=== PATIENT | female | born 1985 | race Caucasian/White ===

== ENCOUNTER 2017-02-16 17:53 | Observation (INO) ==
[2017-02-16] MEDS ORDERED: Terbutaline 1 MG/ML VIAL SQ ONE (18:26)
[2017-02-16 18:36] LABS: Bilirubin,Urine Negative (Negative); Blood,Urine Negative (Negative); Clarity,Urine Clear (Clear); Color,Urine Yellow (Yellow); Glucose,Urine (UA) Normal (Normal); Ketones,Urine 40 mg/dL (Negative); Leukocyte Esterase,Urine Negative (Negative); Nitrite,Urine Negative (Negative); PH,Urine 6.5 pH Units (5.0-8.0); Protein,Urine Negative (Neg-Trace); Specific Gravity,Urine 1.016 (1.010-1.025); Urobilinogen,Urine Normal (Normal)
[2017-02-16 18:45] LABS: Amphetamine Screen,Urine Negative ng/mL (Cutoff=1000); Barbiturate Screen,Urine Negative ng/mL (Cutoff=200); Benzodiazepines Screen,Urine Negative ng/mL (Cutoff=200); Cannabinoid Screen,Urine Negative ng/mL (Cutoff = 50); Cocaine Screen,Urine Negative ng/mL (Cutoff= 300); Opiate Screen,Urine Negative ng/mL (Cutoff=300); Phencyclidine Screen,Urine Negative ng/mL (Cutoff=25)
--- NOTE | 2017-02-16 19:13 | OB/GYN Progress Note ---
Date of Encounter: 02/16/17 Time of Encounter: 19:00 - Assessment and Plan (1) and not yet delivered in third trimester Current Visit: Yes Status: Acute (2) 32 weeks gestation of Current Visit: Yes Status: Acute (3) uterine contractions in third trimester, antepartum Current Visit: Yes Status: Acute Subcutaneous terbutaline given 1 contractions have stopped will discharge home have a follow-up in the office this week for steroids. Return if contractions get more uncomfortable. (4) Previous section complicating Current Visit: Yes Status: Acute (5) History of delivery, currently in third trimester Current Visit: Yes Status: Acute Subjective - Subjective Interval history: Patient is a 31-year-old 9 para 2335 at 32-5/7 weeks who presented to labor and delivery complaining of contractions since 3 AM. Patient has a history of 3 deliveries one at 28 weeks, one at 35 weeks, one at 36 weeks. Her last 2 have been sections. Patient is currently on progestin shots but she has not received any steroid shots at. She is scheduled to come in this week for visit because she lives so far from the hospital recommended she talk to her OB on Thursday and get a steroid shot then she can follow up the next day at the [facility] office for her second shot. On admission patient was having some irritability noted to contractions seen she is denying any dysuria urgency frequency no vaginal discharge good movement. Patient states that she has been keeping herself well-hydrated. Patient was given 1 dose of terbutaline subcutaneous and contractions have spaced out Antepartum ROS: contractions Objective - Vital Signs Vital Signs: Intake and Output 02/16/17 02/16/17 02/16/17 07:59 15:59 23:59 Other: Weight 90.7 kg Patient Weight 02/16/17 23:59 Weight 90.7 kg - Exam FHR: category 1 FHR comments: heart tones 140s reactive irritability noted stopped after terbutaline administered Auscultation: bilateral: normal Abdomen: Present: soft, gravid Cervical dilation: 0 Cervix effacement: 50 station: -3 - Labs Labs: Abnormal lab results Urine Ketones 40 mg/dL (Negative) H 02/16/17 18:20
== END 2017-02-16 19:40 | disposition home or self-care (01) ==
LOC: 1NENULAB
PROVIDERS: ADMIT Obstetrics & Gynecology; ATTEND Obstetrics & Gynecology

== ENCOUNTER 2017-02-23 18:04 | Observation (INO) ==
--- NOTE | 2017-02-23 19:24 | OB/GYN Progress Note ---
Date of Encounter: 02/23/17 Time of Encounter: 19:20 - Assessment and Plan (1) 33 weeks gestation of Current Visit: Yes Status: Acute (2) Vaginal bleeding Current Visit: Yes Status: Acute Labor precautions given (3) History of delivery, currently in third trimester Current Visit: No Status: Acute (4) and not yet delivered in third trimester Current Visit: No Status: Acute (5) uterine contractions in third trimester, antepartum Current Visit: No Status: Acute (6) Previous section complicating Current Visit: No Status: Acute (7) Rivka albicans infection Current Visit: Yes Status: Acute Will treat with terconazole Subjective - Subjective Interval history: Patient is a 31-year-old 9 para 5 at 33-5/7 weeks who presented to labor and delivery for evaluation of vaginal bleeding. Patient has a history of 3 deliveries 2 by section. Patient was seen last week with complaint of contractions nothing was seen and she was discharged home and did receive her steroid shots in the office last week she states today she was having a mucousy discharge that was blood-tinged. She did call the office advised to come to the hospital with her history. Patient states that she has been doing a lot of moving cleaning the house moving furniture getting ready for the baby. Patient is not complaining of any discharge with states she leaks urine whenever she coughs or sneezes. Patient states the baby is still moving states is having some irritability and cramping but nothing that she can time. Antepartum ROS: vaginal bleeding, contractions Objective - Vital Signs Vital Signs: Intake and Output 02/23/17 02/23/17 02/23/17 07:59 15:59 23:59 Other: Weight 90 kg Patient Weight 02/23/17 23:59 Weight 90 kg - Exam FHR: category 1 FHR comments: heart tones 140s reactive no contraction seen Abdomen: Present: soft, gravid Uterus: Present: firm Cervical dilation: Closed Cervix effacement: thick station: ballotable Comments: Sterile speculum exam performed and the patient nitrazine ferning was negative there was some old blood within the vaginal vault wet mount was performed did show some candidiasis.
== END 2017-02-23 19:30 | disposition home or self-care (01) ==
LOC: 1NENULAB
PROVIDERS: ADMIT Obstetrics & Gynecology; ATTEND Obstetrics & Gynecology

== ENCOUNTER 2017-03-01 00:31 | Observation (INO) ==
[2017-03-01 00:56] LABS: Bilirubin,Urine Negative (Negative); Blood,Urine Moderate (Negative); Clarity,Urine Clear (Clear); Color,Urine Yellow (Yellow); Glucose,Urine (UA) Normal (Normal); Ketones,Urine Negative (Negative); Leukocyte Esterase,Urine Negative (Negative); Nitrite,Urine Negative (Negative); PH,Urine 6.5 pH Units (5.0-8.0); Protein,Urine Negative (Neg-Trace); Specific Gravity,Urine 1.015 (1.010-1.025); Urobilinogen,Urine Normal (Normal)
[2017-03-01 00:58] LABS: Bacteria,Urine None Seen per hpf (None-Few); Hyaline Casts,Urine None Seen per lpf (None-Few); Squamous Epithelial Cell,Urine Many per lpf (None-Few); WBC,Urine 0-3 per hpf (0-3)
[2017-03-01 01:01] LABS: Amphetamine Screen,Urine Negative ng/mL (Cutoff=1000); Barbiturate Screen,Urine Negative ng/mL (Cutoff=200); Benzodiazepines Screen,Urine Negative ng/mL (Cutoff=200); Cannabinoid Screen,Urine Negative ng/mL (Cutoff = 50); Cocaine Screen,Urine Negative ng/mL (Cutoff= 300); Opiate Screen,Urine Negative ng/mL (Cutoff=300); Phencyclidine Screen,Urine Negative ng/mL (Cutoff=25)
--- NOTE | 2017-03-01 01:22 | OB/GYN Progress Note ---
Date of Encounter: 03/01/17 Time of Encounter: : - Assessment and Plan (1) 34 weeks gestation of Current Visit: Yes Status: Acute (2) History of delivery, currently in third trimester Current Visit: No Status: Acute (3) Previous section complicating Current Visit: No Status: Acute (4) Vaginal bleeding Current Visit: No Status: Acute Cervical exam unchanged on serial exams. 50/-3. No contractions seen during monitoring Pt states back discomfort has decreased (- CVA tenderness, - UA) Discharged home with when to return precautions and when to call provider. (5) NST (non-stress test) reactive Current Visit: Yes Status: Acute Baseline 120 Subjective - Subjective Interval history: Catrina presents to labor and delivery with complaints of pink discharge and increase in back pain since 1945 this evening. Pt states she noticed the discharge when wiping and states the back pain feels like back labor with her last . Reports good movement, denies leaking of fluid. History of delivery, steroids given. Antepartum ROS: vaginal bleeding, movement normal, contractions, no loss of fluid Objective - Exam FHR: auscultation normal FHR comments: Baseline 120 Abdomen: Present: normal appearance, soft, gravid Cervical dilation: 50/-2 - Labs Labs: Abnormal lab results Urine Blood Moderate (Negative) H 03/01/17 00:35 Urine Microscopic RBC 3-5 per hpf (0-3) H 03/01/17 00:35 Ur Squamous Epith Cells Many per lpf (None-Few) H 03/01/17 00:35
== END 2017-03-01 01:56 | disposition home or self-care (01) ==
LOC: 1NENULAB
PROVIDERS: ADMIT Advanced Practice Midwife; ATTEND Advanced Practice Midwife

== ENCOUNTER 2017-03-07 15:45 | Observation (INO) ==
--- NOTE | 2017-03-07 16:14 | OB/GYN Progress Note ---
Date of Encounter: 03/07/17 Time of Encounter: 16:12 - Assessment and Plan (1) History of delivery, currently in third trimester Current Visit: Yes Status: Acute (2) NST (non-stress test) reactive Current Visit: Yes Status: Acute baseline 125 (3) uterine contractions in third trimester, antepartum Current Visit: Yes Status: Acute Cervical exam remains unchanged from last admission. Will discharge to home with labor and when to return to triage precautions. Dr. Davies made aware of POC (4) Previous section complicating Current Visit: Yes Status: Acute (5) Vaginal bleeding Current Visit: Yes Status: Acute Pt states had dime size spot of bloody show on pad this afternoon. Subjective - Subjective Interval history: 35 weeks gestation presents to triage for labor evaluation. Pt states since noon she has been anna every 12 minutes and has had some bloody show. Reports good movement, denies leaking of fluid. Pt is a repeat C/S. Antepartum ROS: vaginal bleeding, movement normal, contractions, no loss of fluid Objective - Exam FHR: auscultation normal FHR comments: Baseline 125 Abdomen: Present: normal appearance, soft, gravid Uterus: Present: normal Cervical dilation: /50/-2
[2017-03-07 16:51] LABS: Amphetamine Screen,Urine Negative ng/mL (Cutoff=1000); Barbiturate Screen,Urine Negative ng/mL (Cutoff=200); Benzodiazepines Screen,Urine Negative ng/mL (Cutoff=200); Cannabinoid Screen,Urine Negative ng/mL (Cutoff = 50); Cocaine Screen,Urine Negative ng/mL (Cutoff= 300); Opiate Screen,Urine Negative ng/mL (Cutoff=300); Phencyclidine Screen,Urine Negative ng/mL (Cutoff=25)
== END 2017-03-07 16:30 | disposition home or self-care (01) ==
LOC: 1NENULAB
PROVIDERS: ADMIT Advanced Practice Midwife; ATTEND Advanced Practice Midwife

== ENCOUNTER 2017-03-09 18:37 | Observation (INO) ==
[2017-03-09] MEDS ORDERED: Ringers Solution, Lactated 1,000 ML IVC ONE (19:21)
[2017-03-09] MEDS ORDERED: Ringers Solution, Lactated 1,000 ML ONE (19:30)
--- NOTE | 2017-03-09 19:32 | OB/GYN Progress Note ---
Date of Encounter: 03/09/17 Time of Encounter: 19:30 - Assessment and Plan (1) 35 weeks gestation of Current Visit: Yes Status: Acute (2) History of delivery, currently in third trimester Current Visit: No Status: Acute (3) NST (non-stress test) reactive Current Visit: No Status: Acute Baseline 120 (4) uterine contractions in third trimester, antepartum Current Visit: No Status: Acute pt with occasional contractions on monitor, Pt states has not eaten today and only had 2 bottles of water today, fluid bolus given, No change on serial cervical exams. Discharged home with when to return to triage precautions. Pt verbalizes understanding. (5) Previous section complicating Current Visit: No Status: Acute (6) Vaginal bleeding Current Visit: No Status: Acute Subjective - Subjective Interval history: 35+5 weeks gestation presents to triage with complaints of contractions and bleeding areas patient states since earlier this afternoon she has been spotting with small eraser head size clots. She states contractions have continued but got stronger this evening about 5 PM. Patient states feels needle movement (but has decreased from earlier), but still most frequently throughout the day just director stars. Denies leaking of fluid. Antepartum ROS: vaginal bleeding, contractions, no loss of fluid, no movement normal Objective - Vital Signs Vital Signs: Intake and Output 03/09/17 03/09/17 03/09/17 07:59 15:59 23:59 Other: Weight 89.947 kg Patient Weight 03/09/17 23:59 Weight 89.947 kg - Exam FHR: auscultation normal FHR comments: baseline 120 Abdomen: Present: normal appearance, soft, gravid Uterus: Present: normal Cervical dilation: 2/50/-3
[2017-03-09 20:51] LABS: Amphetamine Screen,Urine Negative ng/mL (Cutoff=1000); Barbiturate Screen,Urine Negative ng/mL (Cutoff=200); Benzodiazepines Screen,Urine Negative ng/mL (Cutoff=200); Cannabinoid Screen,Urine Negative ng/mL (Cutoff = 50); Cocaine Screen,Urine Negative ng/mL (Cutoff= 300); Opiate Screen,Urine Negative ng/mL (Cutoff=300); Phencyclidine Screen,Urine Negative ng/mL (Cutoff=25)
== END 2017-03-09 20:55 | disposition home or self-care (01) ==
LOC: 1NENULAB
PROVIDERS: ADMIT Advanced Practice Midwife; ATTEND Advanced Practice Midwife

== ENCOUNTER 2017-03-10 18:40 | Inpatient (IN) ==
--- NOTE | 2017-03-10 18:36 | OB/GYN History & Physical ---
Date of Encounter: 03/10/17 Time of Encounter: 18:30 Assessment and Plan (1) Spontaneous rupture of membranes Current visit: Yes Status: Acute (2) Previous section complicating Current visit: Yes Status: Acute Patient will be kept nothing by mouth for a repeat low transverse section with bilateral partial salpingectomy (3) Family planning advice Current visit: Yes Status: Acute (4) 35 weeks gestation of Current visit: No Status: Acute (5) and not yet delivered in third trimester Current visit: No Status: Acute History of Present Illness HPI: Ms. uCtler is a 31 year old female 9 para 2335 at 35-6/7 weeks who presented to labor delivery complaining of leaking of fluid since about 2330 this afternoon. Patient states she had a large gush of fluid and actually brought and 3 pads soaked. Nitrazine was positive on the perineum speculum exam performed the patient also confirmed nitrazine and ferning positive patient states she last ate at approximately 1400 she is not anna at this time did advise should have to wait 8 hours. Patient is wanting a tubal ligation she states that she did sign tubal papers the risks and benefits of a tubal ligation was expanded to patient with a failure rate of 3-5 per thousand with increased risk of a ectopic if was to occur. Patient does have a history of 2 previous sections. Patient is Rh+ rubella positive GBS unknown at this time. Past Med Surg Social Fam HX - Past Medical History Source: patient, old records reviewed Medical history: asthma Psychiatric history: bipolar, depression - Past Surgical History Surgical History: (x 2), cholecystectomy - Social History Smoking Status: Current every day smoker Smokeless Tobacco Status: No Alcohol use: none Drug use: none Occupational status: unemployed Current living situation: Home - Independent Activity Level: Independent ambulation Recent Out of Country Travel Within the Last 8 Weeks: No Exposure or Possible Exposure to Illness During Travel: No - Family History Mother Adopted: No Living Status: Still Living Hx Family Cardiac Disorders: No Hx Family Respiratory Disorders: No Hx Family Cancer: No Hx Family GI Disorders: No Hx Family Endocrine Disorder: No Hx Family Neuromuscular Disorders: No Hx Family Neurologic Disorders: No Hx Family HEENT Disorders: No Hx Family Autoimmune Disorders: No Hx Family Reproductive Disorders: Yes (ovarian cysts) Obstetrical History - Pregnancies : 9 Para: 5 Term: 2 : 3 Ab's: 3 Livin Medications and Allergies Vit Calc,Iron,Folic [ Vitamins] 1 each PO DAILY #60 tablet 06/02 [Rx] 3 Allergy/AdvReac Type Severity Reaction Status Date / Time Amoxicillin Allergy Difficulty Verified 02/23/17 18:46 Breathing latex Allergy Rash Verified 02/23/17 18:46 Pineapple Allergy Anaphylaxis Verified 02/23/17 18:46 Review of System OB All systems PM: reviewed and no additional remarkable complaints except as stated - Genitourinary Genitourinary: other (Patient scheduled spontaneous rupture membranes) Exam - Constitutional Constitutional: well developed, well nourished, no acute distress, average body habitus - HEENT HEENT: EOMI, PERRL, Mucus Membranes Moist - Neck Neck exam: full ROM - Lungs Respiratory exam: CTAB - Cardiovascular Cardiovascular exam: RRR - Abdomen Abdomen: Present: gravid - Vagina Vagina: Present: discharge (Sterile speculum exam revealed nitrazine positive ferning positive) - Cervix Dilation: 1 Effacement: 50 Station: -3 (ballotable) - Comments Comments: heart tones 140s reactive no contraction seen at this time Results All other labs normal.
[~2017-03-10 18:40] MED LIST: Famotidine 20 MG/2 ML VIAL IVP ONE; Metoclopramide 10 MG/2 ML VIAL IVP ONE; Oxytocin 20 units/ LR 1000 mL 20 UNIT/1,000 ML BAG IVC ONE
[2017-03-10] MEDS ORDERED: Ringers Solution, Lactated 1,000 ML IVC SCH ×2 (18:45→23:09)
[2017-03-10 19:00] LABS: Basophils % 0.2 %; Eosinophils # 0.2 K/mcL (0.0-0.6); Eosinophils % 1.8 %; Hematocrit 33.7 % (35.3-44.9); Hemoglobin 10.9 g/dL (11.5-15.4); Immature Granulocytes % 0.7 % (0-4); Lymphocytes # 3.5 K/mcL (0.6-4.6); Lymphocytes % 27.7 %; Mean Corpuscular HGB Conc 32.3 g/dL (31.6-35.5); Mean Corpuscular Hemoglobin 28.6 pg (28.0-33.3); Mean Corpuscular Volume 88.5 fL (83.0-100.0); Mean Platelet Volume 10.8 fL (9.4-12.4); Monocytes # 0.6 K/mcL (0.0-1.3); Neutrophils # 8.1 K/mcL (1.6-8.9); Platelet Count 208 K/mcL (140-400); Red Blood Count 3.81 M/mcL (3.82-4.97); Red Cell Distribution Width 14.5 % (11.5-14.5); Segmented Neutrophils % 64.6 %
[2017-03-10 19:06] LABS: Amphetamine Screen,Urine Negative ng/mL (Cutoff=1000); Barbiturate Screen,Urine Negative ng/mL (Cutoff=200); Benzodiazepines Screen,Urine Negative ng/mL (Cutoff=200); Cannabinoid Screen,Urine Negative ng/mL (Cutoff = 50); Cocaine Screen,Urine Negative ng/mL (Cutoff= 300); Opiate Screen,Urine Negative ng/mL (Cutoff=300); Phencyclidine Screen,Urine Negative ng/mL (Cutoff=25)
[2017-03-10] MEDS ORDERED: *HR* FentaNYL (PF) 100 MCG/2 ML VIAL ONE (19:28)
[2017-03-10] MEDS ORDERED: Morphine Sulfate/PF 5mg/10mL Vial ONE (19:28)
--- NOTE | 2017-03-10 19:32 | OB Labor Progress Note ---
Date of Encounter: 03/10/17 Time of Encounter: 19:30 Labor Progress Note - Subjective Subjective: Patient still doing okay but had a contraction followed by the deceleration down into the 90s for approximately 2-3 minutes baseline back to normal because of the decelerations decided this time we would not wait the full 8 hours for the section we would go now so it is not under emergent situations. - Heart Tones Heart Tones: 140s reactive patient had a deceleration down into the 80s and 90s for approximately 2-3 minutes back to normal baseline at this time. - [place]: One contraction noted - Plan Plan: Anesthesia notified we will get patient ready for a repeat low transverse section with bilateral partial salpingectomy
[2017-03-10] MEDS ORDERED: Clindamycin 900 MG/50 ML 900 MG/50 ML IV.SOLN IVPB SCH (20:00)
--- NOTE | 2017-03-10 20:07 | Anesthesia Evaluation PreOp ---
Date of Encounter: 03/10/17 Time of Encounter: 19:15 - Past History Planned Operation: C section Cardiac History: Denies any Significant Hx Pulmonary History: Smoker (1/2 ppd), Pack/yr (12), Asthma GOLF [employer]DER History: Denies Any Significant HX Other Medical History: GERD Anesthesia History: No Prior Anesthetic Complications, Past Anesthesia (Barbara, Tonsil, c/s x 3) : Yes Test: Positive Alcohol Use: none Drug use: none Medications and Allergies Vit Calc,Iron,Folic [ Vitamins] 1 each PO DAILY #60 tablet 06/02 [Rx] 3 Allergy/AdvReac Type Severity Reaction Status Date / Time Amoxicillin Allergy Difficulty Verified 02/23/17 18:46 Breathing latex Allergy Rash Verified 02/23/17 18:46 Pineapple Allergy Anaphylaxis Verified 02/23/17 18:46 - Meds/Allergy Pre-op Review Medications Reviewed: Yes Allergies Reviewed: Yes Beta Blockers on Current Med List: No Anesthesia Results - Labs 03/10/17 18:32 Anesthesia Exam 112/70 80 16 fht 90-133 Height: 5'8" Weight: 91 NPO (# of Hours): 6 Pain Scale: 0 Pain Scale Used: Numeric (1 - 10) - HEENT Pupil (Motor): Pupils equal Mallampati: II Teeth: Edentulous Oral Opening: Greater than 3 - GOLF BALL MOLDER LOC: Oriented GOLF BALL MOLDER Motor: Normal RUE, Normal LUE, Normal RLE, Normal LLE, Normal Face GOLF BALL MOLDER Sensory: Normal: RUE, LUE, RLE, LLE, Face - Cardiac Rhythm: Regular Murmur: None - Pulmonary Breath Sounds: bilateral Clear Respiratory Effort: Symmetrical Anesthesia Assess/Plan ASA Score: 2 Modified Nordheim Scale for Level of Consciousness: Cooperative, oriented, and tranquil Anesthetic Plan: Regional (risks discussed, questions answered, consentedSAB) Monitoring Plan: Standard Monitors Recovery Plan: PACU
[2017-03-10] MEDS ORDERED: *HR* Phenylephrine 10 MG/ML VIAL ONE (20:10)
[2017-03-10] MEDS ORDERED: *HR* Oxytocin 10 UNIT/ML VIAL IM ONE ×2 (20:10→20:25)
[2017-03-10] MEDS ORDERED: *HR* HYDROmorphone (PF) 1 MG/ML SYRINGE IVP PRN ×2 (20:15→21:05)
[2017-03-10] MEDS ORDERED: Ondansetron 4 MG/2 ML VIAL IVP PRN ×3 (20:15→23:09)
--- NOTE | 2017-03-10 20:15 | Anesthesia Procedures ---
Date of Encounter: 03/10/17 Time of Encounter: 20:12 Procedures: Anesthesia - Epidural/Spinal Patient ID/Chart reviewed: Yes Patient examined: Yes OB Eval: Gestational age: 35.6 OB Eval: : 9 OB Eval: Hx Para: 3 OB Eval: Dilated at (cm): 3 OB Eval: Contractions: Non-stressed pattern Consent Obtained: Yes Supplemental Oxygen: Nasal Cannula Supplemental Oxygen Rate (L/min): 3 Site Prep: Aseptic Technique, Sterile prep and drape, Povidone-Iodine 1% Patient position: upright Local Anesthetic: Lidocaine 1% Amount of Local Anesthetic used: 3 Interspace Used: L2-L3 Loss of Resistance (MYNOR): No Blood: No CSF: Yes Paresthesia: No Spinal Needle Gauge: 25 Spinal Dose: marcaine 12, morphine.25, fentanyl 10 mcg Procedure: aseptic, tolerated well, effective Vitals + FHT's: 112/70 80 16 fht 90-133
[2017-03-10] MEDS ORDERED: Ringers Solution, Lactated 1,000 ML ONE (20:18)
--- NOTE | 2017-03-10 20:57 | OB/GYN Procedure Note ---
Section - Date of procedure: 03/10/17 Preop diagnosis: other (Intrauterine at 35-6/7 weeks, premature rupture membranes, previous section 2, desires sterilization) Post-op diagnosis: same Procedure: repeat low transverse, bilateral tubal ligation Surgeon: Robinson Bosch Estimated blood loss (cc): 500 Was there an speech pathology assistant present: No Comic Illustrator: Hernan Puentes Anesthesia Type: Spinal section complications: none Disposition: L&D Recovery Room Specimens: Placenta, Right tube segment, Left tube segment - Infant (s) Infant A Infant Delivery Date: 03/10/17 Infant Delivery Time: 20:07 Presentation: vertex Position: GREGORY Route of delivery: other ( section) Gender: Male Viability: Viable Pounds: 6 Ounces: 4 Gram Weight: 2.84 kg at 1 minute: 9 at 5 minutes: 9 Shoulder Dystocia: not encountered Placenta: spontaneous Cord: 3 umbilical vessels - Narrative Narrative: Patient is a 31-year-old 9 para 2335 at 35-6/7 weeks who presented to labor and delivery with complaint of spontaneous rupture membranes approximately 1530. Patient arrived to labor and delivery and was noted to be grossly ruptured with positive nitrazine pooling and ferning. Patient has a history of 2 previous sections and was wanting a tubal ligation the risks and benefits of the tubal ligation was explained to patient with a failure rate of 3-5 per thousand with increased risk of ectopic if was to occur. While waiting to do the section baby had a deceleration down into the 80s for approximately 2-3 minutes did return to baseline but we felt we could not wait the full 8 hours and section was called. Procedure: Patient was taken to the operating room where spinal anesthesia was found adequate. She was placed in the dorsal supine position with leftward tilt prepped and draped in usual fashion. Timeout was then obtained. A Pfannenstiel incision was made with the scalpel removing her old scar and incision was carried down to the underlying tissue to the fascia was identified. The fascia was nicked in the midline extended laterally with the Forrest scissors. The superior and inferior edges of the fascia grasped tented up dissected off the rectus muscles. Rectus muscles were in the midline parietal peritoneum was identified tented up and entered sharply. This was extended superiorly and inferiorly with Metzenbaum scissors she had some omental adhesions which were taken down with the monopolar cautery. Bladder blade was inserted the vesicouterine peritoneum was identified tented up and entered sharply the bladder was then dissected off the lower uterine segment the lower uterine segment was incised with the scalpel and then extended laterally with digital manipulation. Membranes were ruptured clear fluid still present. The 's head was then brought up through the incision followed by the delivery of the baby. The cord was clamped and cut infant was handed off to waiting pediatric team. Cord blood was not necessary at this time placenta was then delivered spontaneously 3 vessel cord. Placenta was then exteriorized and cleaned of all clots and debris and the lower uterine segment was closed using 0 Vicryl in a running locking stitch by 2 layer closure. Good hemostasis was noted. Attention was then turned to the fallopian tubes each tube was grasped at the ampullar region then the distal portion of the fallopian tube including the fimbria was then suture ligated with oh plain 2 and this knuckle was excised. We had good hemostasis bilaterally. Both ovaries were noted been normal. The uterus was returned to the abdomen the gutters were cleaned of all clots and debris with no active bleeding. The rectus muscles were brought together by a [id number] stitch and the fascia was closed using a #1 stratafix suture in a running stitch. The skin was then closed using a 4-0 Vicryl in a subcuticular manner. A Primeo dressing was then applied followed by a pressure dressing. All needle. Sponge counts were correct 3 patient did receive preoperative antibiotics. She will be taken to recovery and then to the floor once stable.
[2017-03-10] MEDS ORDERED: Vancomycin 1,250 MG in D5% in Water 250 ML IVPB ONE (22:00)
[2017-03-10] MEDS ORDERED: CeFAZolin Premix DUPLEX 2,000 MG/50 ML BAG IVPB ONE ×2 (22:00)
[2017-03-10] MEDS ORDERED: Sennosides 8.6 MG TABLET PO PRN (23:09)
[2017-03-10] MEDS ORDERED: Simethicone 80 MG TAB.CHEW PO PRN (23:09)
[2017-03-10] MEDS ORDERED: Oxytocin 20 units/ LR 1000 mL 20 UNIT/1,000 ML BAG IVC SCH ×2 (23:09)
[2017-03-10] MEDS ORDERED: Metoclopramide 10 MG/2 ML VIAL IVP PRN (23:09)
[2017-03-11] MEDS: Ibuprofen 600 MG TABLET PO PRN ×2 (00:21→16:50)
[2017-03-11] MEDS ORDERED: *HR* HYDROmorphone (PF) 1 MG/ML SYRINGE ONE (03:55)
--- NOTE | 2017-03-11 05:10 | Anesthesia Evaluation Post Op ---
Date of Encounter: 03/11/17 Time of Encounter: 05:09 - Vital Signs Vital Signs: Vital Signs/O2 Sat, Most Current Temp Pulse Resp BP Pulse Ox 98.0 F 76 14 96/52 96 03/11/17 02:15 03/11/17 02:15 03/11/17 02:15 03/11/17 02:15 03/11/17 02:15 - Lungs Lungs: Clear Ascult./Percussion - Airway Airway: Non-obstructed - Cardiovascular Regular Rate - Mental Status Mental Status: Alert & Oriented, Answers Appropriately - Pain Pain Scale: 3 Pain Scale used: Numeric (1 - 10) - Nausea Vomiting Nausea Vomiting: Not Present - Hydration Hydration: NPO - Discharge PostOp Status: Transfer Patient to floor (VSS, no anesthetic complications)
[2017-03-11 05:18] LABS: Basophils # 0.1 K/mcL (0.0-0.2); Basophils % 0.3 %; Eosinophils # 0.2 K/mcL (0.0-0.6); Eosinophils % 1.4 %; Hematocrit 33.6 % (35.3-44.9); Hemoglobin 10.6 g/dL (11.5-15.4); Immature Granulocytes % 0.5 % (0-4); Lymphocytes # 3.7 K/mcL (0.6-4.6); Lymphocytes % 22.2 %; Mean Corpuscular HGB Conc 31.5 g/dL (31.6-35.5); Mean Corpuscular Hemoglobin 28.2 pg (28.0-33.3); Mean Corpuscular Volume 89.4 fL (83.0-100.0); Monocytes # 0.6 K/mcL (0.0-1.3); Monocytes % 3.6 %; Neutrophils # 12.1 K/mcL (1.6-8.9); Nucleated Red Blood Cells 0.2 /100 WBC (0); Platelet Count 195 K/mcL (140-400); Red Blood Count 3.76 M/mcL (3.82-4.97); Red Cell Distribution Width 14.4 % (11.5-14.5)
[2017-03-11] MEDS: *HR* OxyCODONE/APAP 5/325 TABLET PO PRN (06:13)
--- NOTE | 2017-03-11 08:29 | OB/GYN Progress Note ---
Date of Encounter: 03/11/17 Time of Encounter: 08:26 - Assessment and Plan (1) Status post Current Visit: Yes Status: Acute Continue current management. Monitor for patient urination now wood is removed. Plan to DC tomorrow if no concerns or complications. (2) Mother currently breast-feeding Current Visit: Yes Status: Acute well with no concerns or questions at this time Subjective - Subjective Principal diagnosis: Repeat C/S for SROM Interval history: Patient doing well today. Denies any complaints or concerns at this time. Patient's wood was removed approximately 2 hours before being seen and therefore has not urinated by herself yet. Patient has not had a BM but has passed flatus. well with no concerns or questions. Patient unable to quantify locia at this time. Patient well controlled. Mood positive Patient reports: appetite normal, pain well controlled, ambulating normally [place]: doing well, nursing well Objective - Vital Signs Latest vital signs: Vital Signs Temp Pulse Resp BP Pulse Ox 03/11/17 08:07 97.3 F L 65 16 100/54 03/11/17 02:15 98.0 F 76 14 96/52 96 03/11/17 01:15 97.5 F L 74 16 100/49 97 03/11/17 00:15 97.9 F 83 16 101/64 97 03/10/17 23:45 98.1 F 78 14 110/63 97 03/10/17 23:15 98.0 F 86 16 97/64 96 Intake and Output 03/10/17 03/11/17 03/11/17 23:59 07:59 15:59 Intake Total 650 / 650 Output Total 400 / 400 200 / 200 Balance -400 / -400 450 / 450 Intake: Oral 650 / 650 Output: Catheter 400 / 400 200 / 200 Other: Weight 87.5 kg 87.543 kg Patient Weight 03/11/17 23:59 Weight 87.543 kg - Exam Lungs: bilateral: normal Extremities: Present: normal Abdomen: Present: normal appearance, soft. Absent: distention, tenderness Incision: Present: normal, dry, intact Uterus: Present: normal (1 fingerbreath below the umbilicus), firm. Absent: bogginess, tenderness - Labs Labs: Laboratory Results - last 24 hr 01/23/18 01/23/18 01/24/18 18:32 18:45 04:48 WBC 12.5 H 16.8 H RBC 3.81 L 3.76 L Hgb 10.9 L 10.6 L Hct 33.7 L 33.6 L MCV 88.5 89.4 MCH 28.6 28.2 MCHC 32.3 31.5 L RDW 14.5 14.4 Plt Count 208 195 MPV 10.8 11.0 Immature Gran % 0.7 0.5 Seg Neutrophils % 64.6 72.0 Lymphocytes % 27.7 22.2 Monocytes % 5.0 3.6 Eosinophils % 1.8 1.4 Basophils % 0.2 0.3 Neutrophils # 8.1 12.1 H Lymphocytes # 3.5 3.7 Monocytes # 0.6 0.6 Eosinophils # 0.2 0.2 Basophils # 0.0 0.1 Nucleated RBCs/100 WBC 0.2 H Urine Opiates Screen Negative Ur Barbiturates Screen Negative Ur Phencyclidine Scrn Negative Ur Amphetamines Screen Negative U Benzodiazepines Scrn Negative Urine Cocaine Screen Negative U Marijuana (THC) Screen Negative
[2017-03-11] MEDS ORDERED: Prenatal Vit/FA 1 EACH TABLET PO SCH (09:00)
[2017-03-11] MEDS: Prenatal Vit/FA 1 EACH TABLET PO SCH (09:19)
[2017-03-11] MEDS: *HR* OxyCODONE/APAP 10/325 TABLET PO PRN ×2 (12:31→21:03)
[2017-03-12] MEDS: Ibuprofen 600 MG TABLET PO PRN (00:11)
[2017-03-12] MEDS: Prenatal Vit/FA 1 EACH TABLET PO SCH (07:41)
[2017-03-12] MEDS: *HR* OxyCODONE/APAP 5/325 TABLET PO PRN (07:49)
[2017-03-12 08:06] VITALS: BP 108/67
--- NOTE | 2017-03-12 09:10 | Discharge Summary ---
Date of Encounter: 03/12/17 Time of Encounter: 09:09 - Discharge Diagnosis (1) Status post Priority: Primary Status: Acute Comments: Patient meeting all milestones. Gibbs removed yesterday and has been able to urinate without difficulty. Passing flatus but no bowel movement yet. Pain under control. Incision site well healing. Lochia was light. Mood positive. We will discharge the patient with close follow-up with [facility] in the next 2 weeks (2) Mother currently breast-feeding Priority: Primary Status: Acute Comments: Patient breast-feeding without issue. We will discharge her with a breast pump prescription. - Discharge Medications Prescriptions: Oxycodone HCl/Acetaminophen [Percocet 5-325 mg Tablet] 1 each PO Q4HR PRN #30 tablet PRN Reason: Pain Ibuprofen 600 mg PO Q6HR PRN #30 tablet PRN Reason: Pain Breast Pump [BREAST PUMP] 1 each .ROUTE AD #1 each Docusate [Colace] 100 mg PO DAILY #20 capsule Home Medications: Vit Calc,Iron,Folic [ Vitamins] 1 each PO DAILY #60 tablet 06/02 [Rx] Breast Pump [BREAST PUMP] 1 each .ROUTE AD #1 each 03/12/17 [Rx] Docusate [Colace] 100 mg PO DAILY #20 capsule 03/12/17 [Rx] Ibuprofen 600 mg PO Q6HR PRN #30 tablet 03/12/17 [Rx] Oxycodone HCl/Acetaminophen [Percocet 5-325 mg Tablet] 1 each PO Q4HR PRN #30 tablet 03/12/17 [Rx] Allergies/Adverse Reactions: 3 Allergy/AdvReac Type Severity Reaction Status Date / Time Amoxicillin Allergy Difficulty Verified 02/23/17 18:46 Breathing latex Allergy Rash Verified 02/23/17 18:46 Pineapple Allergy Anaphylaxis Verified 02/23/17 18:46 Data Procedures and tests throughout hospitalization: Laboratory Tests 03/10/17 03/10/17 03/11/17 18:32 18:45 04:48 WBC 12.5 H 16.8 H RBC 3.81 L 3.76 L Hgb 10.9 L 10.6 L Hct 33.7 L 33.6 L MCV 88.5 89.4 MCH 28.6 28.2 MCHC 32.3 31.5 L RDW 14.5 14.4 Plt Count 208 195 MPV 10.8 11.0 Immature Gran % 0.7 0.5 Seg Neutrophils % 64.6 72.0 Lymphocytes % 27.7 22.2 Monocytes % 5.0 3.6 Eosinophils % 1.8 1.4 Basophils % 0.2 0.3 Neutrophils # 8.1 12.1 H Lymphocytes # 3.5 3.7 Monocytes # 0.6 0.6 Eosinophils # 0.2 0.2 Basophils # 0.0 0.1 Nucleated RBCs/100 WBC 0.2 H Urine Opiates Screen Negative Ur Barbiturates Screen Negative Ur Phencyclidine Scrn Negative Ur Amphetamines Screen Negative U Benzodiazepines Scrn Negative Urine Cocaine Screen Negative U Marijuana (THC) Screen Negative Date of admission: 03/10/17 18:40 Primary care physician: PCP NONE Consults: 03/12/17 08:47 Consult to Payroll Manager ([facility]) [CONS] Stat Reason For Exam: Reason for SW Consult: Concern for self induced rupture of membranes Discharging clinician: Elisha Donald Anticipated date of discharge: 03/12/17 - Patient Status Disposition: Home, Self-Care Condition: Good Functional capacity at discharge: independent ambulation Overall status at discharge: patient is back to baseline - Discharge Instructions Follow Up With: [facility] [Provider Group] - Diet and Activity Activity: resume usual activities as tolerated Diet: advance to your usual diet Hospital Course Reason for admission: rupture of membranes Delivery: section Other procedures: tubal ligation complications: none Discharge diagnosis: delivery baby: male Hospital course: - Date of procedure: 03/10/17 Preop diagnosis: other (Intrauterine at 35-6/7 weeks, premature rupture membranes, previous section 2, desires sterilization) Post-op diagnosis: same Procedure: repeat low transverse, bilateral tubal ligation Surgeon: Robisnon Bosch Estimated blood loss (cc): 500 Was there an behavioral health assistant present: No Animal Shelter Manager: Hernan Puentes Anesthesia Type: Spinal section complications: none Disposition: L&D Recovery Room Specimens: Placenta, Right tube segment, Left tube segment - (s) A Delivery Date: 03/10/17 Delivery Time: 20:07 Presentation: vertex Position: GREGORY Route of delivery: other ( section) Gender: Male Viability: Viable Pounds: 6 Ounces: 4 Gram Weight: 2.84 kg at 1 minute: 9 at 5 minutes: 9 Shoulder Dystocia: not encountered Placenta: spontaneous Cord: 3 umbilical vessels Time Attestation: Total time spent providing and/or coordinating discharge services: Time Spent: Less than 30 minutes - VTE Documentation of Mechanical Device: Intermittent pneumatic compression device Exam - Constitutional Vitals: Temp Pulse Resp BP Pulse Ox 97.9 F 76 18 108/67 95 03/12/17 08:05 03/12/17 08:05 03/12/17 08:05 03/12/17 08:05 03/12/17 08:05 General appearance IM: A&O X 3, no acute distress - Respiratory Respiratory exam: Present: CTAB - Cardiovascular Cardiovascular exam IM: Present: RRR - GI/Abdominal GI/Abdominal exam IM: normal bowel sounds, soft Incision: normal, dry, intact - Uterine Tone: Firm Uterus Position: 1 Finger Below Umbilicus - Extremities Exam Extremities exam IM: Present: normal inspection - Neurological Exam Neurological exam: alert, oriented X3
== END 2017-03-12 11:42 | disposition home or self-care (01) | DRG 540 ==
LOC: 1NENULAB → 1NENUOBS 23:09
PROVIDERS: ADMIT Advanced Practice Midwife; ATTEND Advanced Practice Midwife